=== PATIENT | male | born 2000 | race Caucasian/White ===

== ENCOUNTER 2020-05-11 10:32 | Emergency (ER) | payer BC, SELFPAY ==
--- NOTE | ~2020-05-11 | XR_ITS ---
EXAMINATION: XR chest 1V portable DATE: 05/11/2020 11:05 INDICATION: Shortness of breath. COVID positive TECHNIQUE: frontal view of the chest was obtained. COMPARISON: None FINDINGS: The lungs are clear with no focal airspace opacities, pulmonary edema, pleural effusion or pneumothor ax. The cardiomediastinal silhouette is normal. Visualized bones and soft tissues are unremarkable. IMPRESSION: 1. Normal chest radiograph. Reviewed, dictated and finalized at location A. IMPRESSION: 1. Normal chest radiograph.
[2020-05-11 10:40] VITALS: BP 147/90; PULSE 93; RESP 22; TEMP 37.5; O2SAT 100
--- NOTE | 2020-05-11 10:47 | PC.NURSE ---
Pt 100% on room air, pt ran in place and O2 went to 97% and back up to 100% during activity.
--- NOTE | 2020-05-11 10:59 | ED.GENADULT ---
HPI - General Adult General Chief complaint: Upper Respiratory Infection Stated complaint: ST/CHEST PAIN Time Seen by Provider: 05/11/20 10:37 History of Present Illness HPI narrative: Patient is a 19-year-old male who presents the ER with shortness of breath. Patient was diagnosed with COVID-19 today after being swabbed yesterday. Reports over the last for 5 days has been having some cough with runny nose. He is also been fatigued. He has history of asthma and has been using his albuterol. No known sick contacts that could have given him the illness. 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 Related Data Allergies Allergy/AdvReac Type Severity Reaction Status Date / Time hazelnut Allergy Intermediate Swelling Verified 05/11/20 10:49 kiwi Allergy Intermediate Swelling Verified 05/11/20 10:49 animal dander Allergy Itching Verified 05/11/20 10:49 Review of Systems Review of Systems: All systems reviewed & are unremarkable except as noted in HPI and below Constitutional: Constitutional: Denies chills, Reports fatigue, Denies fever(s) and Reports weakness ENT: Reports nasal congestion and Denies sore throat Cardiovascular: Cardiovascular: Denies chest pain and Denies radiating jaw, neck or arm pain Respiratory: Respiratory: Reports cough, Reports dyspnea and Denies wheezing PMFSH Past Medical History Medical History (Updated 05/11/20 @ 12:27 by Renan Fischer MD) Asthma Encounter to establish care Surgical History Surgical History (Updated 05/11/20 @ 11:03 by Renan Fischer MD) No pertinent past surgical history Social History Social History Smoking status: Never smoker Second hand tobacco smoke exposure: No Alcohol intake: never Substance use: never Gender identity (if verbalized by the patient): Male Exam Narrative: Exam Narrative: GENERAL: Well-appearing, well-nourished, and in no acute distress. HEAD: Normocephalic, atraumatic. ENT: Mucous membranes moist. CHEST: Clear to auscultation, right basilar rales that cleared with coughing. No respiratory distress. HEART: Regular rate and rhythm. Normal peripheral pulses. ABDOMEN: Soft, nontender, nondistended. EXTREMITIES: Normal range of motion. No edema. NEURO: Alert and oriented x3. PSYCH: Normal mood and affect. Course Course Emergency Course: Unremarkable evaluation. Discharge home. Vital Signs Vital signs: Vital Signs Temperature 99.5 F 05/11/20 10:40 Pulse Rate 93 05/11/20 10:40 Respiratory Rate 22 H 05/11/20 10:40 Blood Pressure 147/90 H 05/11/20 10:40 Pulse Oximetry 100 05/11/20 10:40 Temperature 99.5 F 05/11/20 10:40 Pulse Rate 93 05/11/20 10:40 Respiratory Rate 22 H 05/11/20 10:40 Blood Pressure 147/90 H 05/11/20 10:40 Pulse Oximetry 100 05/11/20 10:40 Medical Decision Making Vital Signs Vital Signs: Vital Signs Temperature 99.5 F 05/11/20 10:40 Pulse Rate 93 05/11/20 10:40 Respiratory Rate 22 H 05/11/20 10:40 Blood Pressure 147/90 H 05/11/20 10:40 Pulse Oximetry 100 05/11/20 10:40 Temperature 99.5 F 05/11/20 10:40 Pulse Rate 93 05/11/20 10:40 Respiratory Rate 22 H 05/11/20 10:40 Blood Pressure 147/90 H 05/11/20 10:40 Pulse Oximetry 100 05/11/20 10:40 Lab Data Result diagrams: 05/11/20 11:14 05/11/20 11:14 Labs: Lab Results 05/11/20 05/11/20 Range/Units 11:14 11:14 WBC 8.7 (4.5-10.0) K/mm3 RBC 5.80 (4.6-6.20) M/mm3 Hgb 17.5 (14.0-18.0) g/dL Hct 50.9 (42.0-52.0) % MCV 87.8 (80-100) fl MCH 30.2 (26-34) pg MCHC 34.4 (32-36) g/dl RDW 11.9 (11.5-14.5) % Plt Count 207 (150-375) k/mm3 MPV 11.7 H (7.4-10.4) fl Immature Gran % (Auto) 0.1 (0-0.5) % Neut % (Auto) 68.8 (45.5-73.1) % Lymph % (Auto) 17.7 L (18.3-44.2) % Forest % (Auto) 12.3 H (2.6-8.5) % Eos % (Auto) 0.9 (0-4.4) %
[2020-05-11 11:22] LABS: Basophils Percent Auto 0.2 % (0.2-1.2); Eosinophils Absolute Auto 0.1 K/mm3 (0-0.3); Eosinophils Percent Auto 0.9 % (0-4.4); Hematocrit 50.9 % (42.0-52.0); Hemoglobin 17.5 g/dL (14.0-18.0); Immature Granulocyte Absolute 0.01 K/mm3 (0.00-0.031); Immature Granulocyte Percent A 0.1 % (0-0.5); Lymphocytes Absolute Auto 1.54 K/mm3 (0.9-3.2); Lymphocytes Percent Auto 17.7 % (18.3-44.2); Mean Corpuscular HGB Conc 34.4 g/dl (32-36); Mean Corpuscular Hemoglobin 30.2 pg (26-34); Mean Corpuscular Volume 87.8 fl (80-100); Mean Platelet Volume 11.7 fl (7.4-10.4); Monocytes Absolute Auto 1.1 K/mm3 (0.1-0.6); Monocytes Percent Auto 12.3 % (2.6-8.5); Neutrophils Percent Auto 68.8 % (45.5-73.1); Platelet Count Result 207 k/mm3 (150-375); Red Cell Distribution Width 11.9 % (11.5-14.5); White Blood Count 8.7 K/mm3 (4.5-10.0)
[2020-05-11 11:36] LABS: Alanine Aminotransferase 27 U/L (4-50); Alkaline Phosphatase 90 U/L (38-126); Anion Gap 12 mmol/L (8-16); Aspartate Amino Transferase 27 U/L (17-59); Blood Urea Nitrogen 16 mg/dL (9-20); Calcium 9.2 mg/dL (8.4-10.2); Carbon Dioxide 24 mmol/L (22-30); Chloride 102 mmol/L (98-107); Estimated CRCL calculation 103 ml/min; Estimated Glomerular Filt Rate > 60; Glucose 85 mg/dL (75-110); Potassium 3.9 mmol/L (3.4-5.0); Sodium 138 mmol/L (137-145)
[2020-05-11 13:02] VITALS: BP 124/70; PULSE 93; RESP 18; O2SAT 99
== END 2020-05-11 13:04 | disposition home or self-care (01) ==
PROVIDERS: Emergency Provider Emergency Medicine; PCP Internal Medicine
DX: U07.1 COVID-19 (principal); J45.909 Unspecified asthma, uncomplicated
CPT/HCPCS: 36415; 71045; 80053; 85025; 99283

== ENCOUNTER 2023-10-21 08:21 | Outpatient (CLI) | payer OTHER, SELFPAY ==
--- NOTE | ~2023-10-21 | XR_ITS ---
EXAMINATION: XR UGIAC w barium swallow DATE: 10/21/2023 09:20 INDICATION: Dysphagia. Gastroesophageal reflux disease. TECHNIQUE: The patient drank thick barium, gas-producing crystals, and thin barium. A total of fluoro scopic images of the esophagus, stomach, and proximal small bowel were obtained. Fluoroscopy exposure time was minutes. COMPARISON: None. FINDINGS: The esophagus is normal without mass or stricture. Esophageal motility is normal. Borderlin e very small sliding-type hiatal hernia with gastroesophageal junction approximately 2.5 cm above the level of the diaphragm. There was no gastroesophageal reflux with provocative maneuvers. The stomach and proximal small bowel are normal. IMPRESSION: 1. Borderline very small sliding-type hiatal hernia. Otherwise normal esophagram and upper GI study w ith no reflux with provocative maneuvers. Reviewed, dictated and finalized at location A. 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 Borderline very small sliding-type hiatal hernia. Otherwise normal esophagra m and upper GI study with no reflux with provocative maneuvers.
== END 2023-10-21 08:22 | disposition home or self-care (01) ==
LOC: ANHIMG 08:30
PROVIDERS: PCP Internal Medicine; Visit Provider Internal Medicine
DX: R13.10 Dysphagia, unspecified (principal); K44.9 Diaphragmatic hernia without obstruction or gangrene
CPT/HCPCS: 74246

== ENCOUNTER 2024-10-05 13:52 | Outpatient (CLI) | payer OTHER, SELFPAY ==
[2024-10-05 14:10] LABS: Basophils Percent Auto 0.6 % (0.2-1.2); Eosinophils Absolute Auto 0.5 K/mm3 (0-0.3); Eosinophils Percent Auto 8.3 % (0-4.4); Hematocrit 45.6 % (42.0-52.0); Hemoglobin 15.1 g/dL (14.0-18.0); Immature Granulocyte Absolute 0.01 K/mm3 (0.00-0.031); Immature Granulocyte Percent A 0.2 % (0-0.5); Lymphocytes Absolute Auto 2.69 K/mm3 (0.9-3.2); Lymphocytes Percent Auto 42.1 % (18.3-44.2); Mean Corpuscular HGB Conc 33.1 g/dl (32-36); Mean Corpuscular Hemoglobin 29.8 pg (26-34); Mean Corpuscular Volume 89.9 fl (80-100); Mean Platelet Volume 9.9 fl (7.4-10.4); Monocytes Absolute Auto 0.7 K/mm3 (0.1-0.6); Monocytes Percent Auto 10.6 % (2.6-8.5); Neutrophils Absolute Auto 2.4 K/mm3 (1.3-6.7); Neutrophils Percent Auto 38.2 % (45.5-73.1); Platelet Count Result 296 k/mm3 (150-375); Red Blood Count 5.07 M/mm3 (4.6-6.20); Red Cell Distribution Width 12.6 % (11.5-14.5); White Blood Count 6.4 K/mm3 (4.5-10.0)
[2024-10-05 14:24] LABS: Alanine Aminotransferase 76 U/L (6-50); Albumin Level 4.5 g/dL (3.5-5.1); Alkaline Phosphatase 71 U/L (38-126); Anion Gap 4 mmol/L (4-12); Aspartate Amino Transferase 39 U/L (17-59); Bilirubin,Total 0.7 mg/dL (0.2-1.3); Blood Urea Nitrogen 12 mg/dL (9-20); Calcium 9.1 mg/dL (8.4-10.2); Carbon Dioxide 27 mmol/L (22-30); Chloride 107 mmol/L (98-107); Estimated Glomerular Filt Rate > 60; Glucose 77 mg/dL (65-110); Potassium 4.3 mmol/L (3.4-5.0); Sodium 138 mmol/L (137-145)
== END 2024-10-05 13:53 | disposition home or self-care (01) ==
LOC: ANHLAB 13:55
PROVIDERS: PCP Internal Medicine; Visit Provider Internal Medicine
DX: A06.9 Amebiasis, unspecified (principal)
CPT/HCPCS: 36415; 80053; 85025

== ENCOUNTER 2024-10-06 16:14 | Outpatient (CLI) | payer OTHER, SELFPAY | END 2024-10-06 16:15 | disposition home or self-care (01) | LOC: ANHLAB 16:15 | PROVIDERS: PCP Internal Medicine; Visit Provider Internal Medicine | DX: A06.9 Amebiasis, unspecified (principal) | CPT/HCPCS: 87045; 87427; 87449; 89055 ==

== ENCOUNTER 2025-04-27 09:15 | Outpatient (CLI) | payer OTHER, SELFPAY ==
--- NOTE | ~2025-04-27 | XR_ITS ---
EXAM/ PROCEDURE: XR thoracic spine 3V - 04/27/2025 9:35 CDT HISTORY: 24 years old Male with M54.9 - Dorsalgia, unspecified M54.9 - Dorsalgia, unspecified COMPARISON: None available TECHNIQUE: Three view(s) FINDINGS/ IMPRESSION: There are no fractures or dislocations.Intervertebral disc spaces are within normal limits. Visualize d portion of lungs are clear. Reviewed, dictated and finalized at location A.
--- OUTSIDE RECORDS SUMMARY | 2025-04-27 09:22 | XMS_ITS | Clinical Summary ---
Author Organization [facility] Address [address] [place] [address] Phone Care Team Providers Care Procurement Engineer Name Role Phone Germain Martinez MD Primary Care Provider [phone] Allergies Active Allergy Reactions Criticality Noted Date Comments Cat Dander Hives High 01/11/2017 Dog Dander Hives High 01/11/2017 Hazelnut Anaphylaxis High 01/11/2017 Kiwi Anaphylaxis High 01/11/2017 Medications albuterol HFA 90 mcg inhaler Take 2 Puffs by inhalation every 6 hours as needed for Shortness of Breath or Wheezing. Active multivitamin (DAILY-RADHA) tablet Take 1 Tablet by mouth daily. Active Family History Medical History Relation Name Comments Healthy Brother Anxiety Father Norman High Cholesterol Father Norman Heart Disease Maternal Grandfather Heart Disease Maternal Grandmother Healthy Mother Girish Parkinson's Disease Paternal Grandfather Dementia Paternal Grandmother Relation Name Status Comments Brother Alive Father Norman Alive Maternal Grandfather Maternal Grandmother Mother Girish Alive Paternal Grandfather Paternal Grandmother Social History Tobacco Use Types Packs/Day Years Used Date Smoking Tobacco: Never Alcohol Use Standard Drinks/Week Comments No 0 (1 standard drink = 0.6 oz pur e alcohol) Sex and Gender Information Value Date Recorded Sex Assigned at Not on file Legal Sex Male 9:54 AM CDT Gender Identity Not on file Sexual Orientation Not on file Plan of Treatment Health Maintenance Due Date Last Done Comments HPV VACCINES (1 - Male 3-dose series) 2014 DTAP/TDAP/TD VACCINES (1 - Tdap) 2018 HEPATITIS B VACCINES (1 of 3 - 19+ 3-dose series) 06/05 INFLUENZA VACCINE (#1) 2025 Insurance BCBS BLUE ACCESS/TRUE BLUE PPO BCBS BLUE ACCESS/TRUE BLUE PPO BCBS BLUE ACCESS/TRUE BLUE PPO Care Teams Procurement Engineer Relationship Specialty Start Date End Date Germain Martinez MD [address] [place] [address] [place] [phone] PCP - General Pediatrics 06/10/16
--- OUTSIDE RECORDS SUMMARY | 2025-04-27 09:22 | XMS_ITS | Clinical Summary ---
Author Organization [facility] [address] Address [address] [place] [address] Care Team Providers Care Hole Digger Operator Name Role Phone Mehdi Ruggiero MD Primary Care Provider [phone] Allergies Active Allergy Reactions Criticality Noted Date Comments Animal Dander Itching Low 02/20/2020 Hazelnut Swelling Medium 02/20/2020 Kiwi Swelling Medium 02/20/2020 Medications multivitamin tablet Take 1 tablet by mouth daily Active albuterol HFA (PROVENTIL HFA,VENTOLIN HFA,PROAIR HFA) 90 mcg/actuation inhaler Inhale 2 puffs every 6 (six) hours as needed Active Active Problems No known active problems Medical History Medical History Date Comments Epistaxis Asthma Allergies GERD (gastroesophageal reflux disease) Family History Medical History Relation Name Comments No Known Problems Brother No Known Problems Father No Known Problems Maternal Grandfather No Known Problems Maternal Grandmother No Known Problems Mother No Known Problems Other No Known Problems Paternal Grandfather No Known Problems Paternal Grandmother No Known Problems Sister Relation Name Status Comments Brother Father Maternal Grandfather Maternal Grandmother Mother Other Paternal Grandfather Paternal Grandmother Sister Social History Tobacco Use Types Packs/Day Years Used Date Smoking Tobacco: Never Smokeless Tobacco: Never Sex and Gender Information Value Date Recorded Sex Assigned at Not on file 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 Gender Identity Not on file Sexual Orientation Not on file Obstetrics History Last Filed Vital Signs Vital Sign Reading Time Taken Comments Blood Pressure 136/86 01/08/2024 4:00 AM CDT Pulse 72 01/08/2024 4:00 AM CDT Temperature 36.8 C (98.3 F) 01/08/2024 1:43 AM CDT Respiratory Rate 20 01/08/2024 1:43 AM CDT Oxygen Saturation 98% 01/08/2024 4:00 AM CDT Inhaled Oxygen Concentration - - Weight 84.2 kg (185 lb 10 oz) 01/08/2024 1:43 AM CDT Height 182.9 cm (6') 01/08/2024 1:43 AM CDT Body Mass Index 25.18 01/08/2024 1:43 AM CDT Plan of Treatment Health Maintenance Due Date Last Done Comments Depression Screening 1999 Hepatitis C Screening 1999 DTaP/Tdap/Td Vaccine (1 - Tdap) 2010 Varicella Vaccines (1 of 2 - 13+ 2-dose series) 2012 HPV Vaccines (1 - Male 3-dose series) 2014 Hepatitis B Screening 2017 Regular Well Visit/Exam 18-64 2017 Influenza Vaccine (#1) 2025 9, 08/13/2016, 07/04/2015, Additional history exists Pneumococcal vaccine <65 Aged Out No longer eligible based on patient's age to complete this topic Insurance [facility] [employer] Care Teams Hole Digger Operator Relationship Specialty Start Date End Date Mehdi Ruggiero MD [address] [facility] [address] [place] [address] PCP - General Internal Medicine 02/15/20
--- OUTSIDE RECORDS SUMMARY | 2025-04-27 09:22 | XMS_ITS | Referral Summary ---
Author Organization [facility] [address] [place] Address [address] [place] [address] Care Team Providers Care Maintenance Construction Helper Name Role Phone Mehdi Ruggiero MD Primary Care Provider [phone] Allergies Active Allergy Reactions Criticality Noted Date Comments Animal Dander Itching Low 02/20/2020 Hazelnut Swelling Medium 02/20/2020 Kiwi Swelling Medium 02/20/2020 Medications multivitamin tablet Take 1 tablet by mouth daily Active albuterol HFA (PROVENTIL HFA,VENTOLIN HFA,PROAIR HFA) 90 mcg/actuation inhaler Inhale 2 puffs every 6 (six) hours as needed Active Active Problems No known active problems Social History Tobacco Use Types Packs/Day Years Used Date Smoking Tobacco: Never Smokeless Tobacco: Never Sex and Gender Information Value Date Recorded Sex Assigned at Not on file 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
== END 2025-04-27 09:16 | disposition home or self-care (01) ==
PROVIDERS: PCP Internal Medicine; Visit Provider Internal Medicine
DX: M54.9 Dorsalgia, unspecified (principal); G89.29 Other chronic pain
CPT/HCPCS: 72072